=== PATIENT | female | born 1980 | race Caucasian/White ===

== ENCOUNTER 2020-08-16 06:13 | Inpatient (IN) | payer BC ==
[~2020-08-16] VITALS: Ht 162.6 cm; Wt 82.6 kg
[~2020-08-16 06:13] MED LIST: AMOX875; AMOXICILLIN; Amoxicillin500 MG PO; DIPH25 PO; DIPH50; Flonase 0.05% N16 GM; HYDACE5 PO; HYDCOR1TC; MULVITMINE; OFLO.3OPSO OU; POLYMYXIN B; PRED1; PRED20 PO; RANI150 PO; TRIMETHOPRIM; TYLENOL AND ADVIL; VITAMIN C
[2020-08-17 05:35] LABS: BASOPHILS ABSOLUTE AUTO 0.02 K/mm3 (0.00-0.23); BASOPHILS PERCENT AUTO 0 % (0-2); EOSINOPHILS ABSOLUTE AUTO 0.06 K/mm3 (0.00-0.68); EOSINOPHILS PERCENT AUTO 1 % (0-6); Hematocrit 32.5 % (33.0-51.0); Hemoglobin 10.6 g/dL (11.5-16.0); IMMATURE GRAN ABSOLUTE AUTO 0.03 K/mm3 (0.00-0.10); IMMATURE GRAN PERCENT AUTO 0 % (0-1); LYMPHOCYTES ABSOLUTE AUTO 2.02 K/mm3 (0.84-5.20); LYMPHOCYTES PERCENT AUTO 16 % (21-46); MONOCYTES ABSOLUTE AUTO 0.76 K/mm3 (0.16-1.47); MONOCYTES PERCENT AUTO 6 % (4-13); Mean Corpuscular HGB 29.9 pg (26.0-34.0); Mean Corpuscular HGB Conc 32.6 g/dL (31.5-36.5); Mean Corpuscular Volume 92 fL (80-100); Mean Platelet Volume 10.8 fL (9.1-12.4); NEUTROPHILS ABSOLUTE AUTO 9.87 K/mm3 (1.96-9.15); NEUTROPHILS PERCENT AUTO 77 % (41-73); Platelet Count 270 K/mm3 (150-400); RDW Coefficient Variation 12.9 % (11.7-14.2); RDW Standard Deviation 43.6 fL (35.1-46.3); Red Blood Cell Count 3.54 M/mm3 (3.80-5.20); White Blood Cell Count 12.76 K/mm3 (4.00-11.30)
[2020-08-17] MEDS ORDERED: Percocet 5-3251 EACH PO (14:12)
[2020-08-17] MEDS ORDERED: IBU800 MG PO (14:12)
== END 2020-08-17 14:55 | disposition home or self-care (01) | DRG 743 ==
LOC: ORSCMMR 06:13 → ORD 07:30 → BC 10:05 → ORSCMMR 20:24 → BC 20:25
PROVIDERS: ADMIT Obstetrics & Gynecology
PROC: 0UT7FZZ Resection of Bilateral Fallopian Tubes, Via Natural or Artificial Opening With Percutaneous Endoscopic Assistance (ICD-10-PCS; 2020-08-16)
PROC: 0UT9FZZ Resection of Uterus, Via Natural or Artificial Opening With Percutaneous Endoscopic Assistance (ICD-10-PCS; principal; 2020-08-16 07:30)
DX: N94.6 Dysmenorrhea, unspecified (principal); R10.2 Pelvic and perineal pain; N81.2 Incomplete uterovaginal prolapse
CPT/HCPCS: 36415; 85025; A9270; J0171; J0690; J1100; J1885; J2250; J2405; J2704; J2710; J3010; J7120

== ENCOUNTER → 2024-02-27 | Outpatient (CLI) | payer BC ==
[~2024-02-27] MED LIST changes: +IBU800 MG PO; +Percocet 5-3251 EACH PO
[2024-02-27 11:06] LABS: BASOPHILS ABSOLUTE AUTO 0.02 K/mm3 (0.00-0.23); BASOPHILS PERCENT AUTO 0 % (0-2); EOSINOPHILS PERCENT AUTO 2 % (0-6); Hematocrit 37.4 % (33.0-51.0); Hemoglobin 12.4 g/dL (11.5-16.0); IMMATURE GRAN ABSOLUTE AUTO 0.02 K/mm3 (0.00-0.10); IMMATURE GRAN PERCENT AUTO 0 % (0-1); LYMPHOCYTES ABSOLUTE AUTO 1.16 K/mm3 (0.84-5.20); LYMPHOCYTES PERCENT AUTO 17 % (21-46); MONOCYTES ABSOLUTE AUTO 0.36 K/mm3 (0.16-1.47); MONOCYTES PERCENT AUTO 5 % (4-13); Mean Corpuscular HGB 30.8 pg (26.0-34.0); Mean Corpuscular HGB Conc 33.2 g/dL (31.5-36.5); Mean Corpuscular Volume 93 fL (80-100); Mean Platelet Volume 10.5 fL (9.1-12.4); NEUTROPHILS ABSOLUTE AUTO 5.01 K/mm3 (1.96-9.15); NEUTROPHILS PERCENT AUTO 75 % (41-73); Platelet Count 300 K/mm3 (150-400); RDW Coefficient Variation 13.1 % (11.7-14.2); RDW Standard Deviation 44.2 fL (35.1-46.3); Red Blood Cell Count 4.02 M/mm3 (3.80-5.20); White Blood Cell Count 6.67 K/mm3 (4.00-11.30)
[2024-02-27 11:15] LABS: Albumin, Blood 3.6 g/dL (3.4-5.0); Albumin/Globulin Ratio 0.9 (0.8-1.8); Bilirubin, Total 0.2 mg/dL (0.1-1.0); Bun/Creatinine Ratio 16.4 (12.0-20.0); Calcium, Blood 9.2 mg/dL (8.5-10.1); Creatinine, Blood 0.73 mg/dL (0.40-1.00); Potassium, Blood 3.9 mmol/L (3.5-5.5); Total Protein, Blood 7.6 g/dL (6.4-8.2)
== END | disposition home or self-care (01) ==
LOC: LAB SHORT 11:01 → LAB 11:01
PROVIDERS: Physician Assistant
DX: R10.9 Unspecified abdominal pain (principal)
CPT/HCPCS: 80053; 83690; 85025